=== PATIENT | male | born 1965 | race African-American/Black ===

== ENCOUNTER → 2020-02-19 | Outpatient (CLI) | payer OTHER ==
[2014-02-17 20:28] VITALS: BP 156/94
[~2020-02-19] MED LIST: ZOLPIDEM 5 MG TABLET. PO ONE
--- NOTE | 2020-02-20 12:30 | SLEEP ---
DATE OF STUDY: 02/20/2020 SLEEP STUDY REFERRED BY: Mariana Veronica APRN The patient is 54 years old, who weighs 200 pounds with a BMI of 30. The patient's [place] score was 10. The patient underwent split night study performed at [facility]. During the night study, the patient spent 436 minutes in bed and slept for 262 minutes with a sleep efficiency of 60%. Sleep latency was 98 minutes with a REM latency of 282 minutes. Sleep architecture showed increased stage 1 and stage 2 sleep, absent slow wave sleep and reduced REM sleep, which was 13% of total sleep time. During the initial diagnostic portion of the study, the patient slept for 87 minutes. During that time, the patient had 60 obstructive apneas, 63 mixed apneas, no central apneas and 15 hypopneas. The patient's AHI was 95 per hour. There was no supine or REM sleep seen during the diagnostic portion. EKG monitoring revealed mean heart rate of 95 beats per minute. No sustained arrhythmias observed. Nocturnal oximetry study revealed a mean oxygen saturation of 94% with lowest of 81%. A 33% of the time, oxygen saturation remained between 80% and 89%. No significant PLMs seen. The patient met the criteria for CPAP initiation. It was started at 5-cm water and titrated up to 17-cm water. At the final pressure, the patient slept for 47 minutes. The patient had lateral REM sleep. The patient's AHI was reduced to 1 per hour and oxygen saturation remained above 92%. The patient used medium-sized full facemask. IMPRESSION: 1. Severe obstructive sleep apnea at an apnea-hypopnea index of 95 per hour. 2. Nocturnal hypoxia secondary to obstructive sleep apnea, but resolved with CPAP. 3. No clinically significant periodic limb movements. RECOMMENDATIONS: 1. CPAP at 17-cm water, completely eliminated the patient's sleep apnea, should be used on a nightly basis. 2. Follow up in 4-6 weeks to assess compliance with CPAP and to document clinical improvement. 3. Weight loss is advised. 4. Avoid [employer] depressants. 5. Cautioned regarding driving until symptoms of sleep apnea resolve with the use of CPAP. DEANDRA NAGEL MD DR: LUIS/avelino JOB#: [id number] / [id number] MARIANA Shipman APRN
== END | disposition home or self-care (01) ==
LOC: SLPLAB 19:23
PROVIDERS: ATTEND Nurse Practitioner Family
DX: G47.33 Obstructive sleep apnea (adult) (pediatric) (principal); G47.34 Idiopathic sleep related nonobstructive alveolar hypoventilation
CPT/HCPCS: 95810

== ENCOUNTER → 2021-06-24 | Outpatient (CLI) | payer OTHER ==
[2014-02-17 20:28] VITALS: BP 156/94
--- NOTE | 2021-06-24 17:06 | RAD ---
US HEAD/NECK SOFT TISSUE History:Reason: NODULE OF NECK / Spl. Instructions: / History: Comparison: None Technique: Sonographic examination of the mid posterior neck Findings: Ill-defined lobulated isoechoic mass within the posterior neck subcutaneous fat measures 2.1 x 1.1 x 1.8 cm. Impression: 1. Lobulated isoechoic mass within the posterior neck subcutaneous tissues, most likely lipoma. Electronically signed by: Jose Osborn DO (06/24/2021 5:04 PM) [id number]
--- NOTE | 2021-06-24 17:22 | RAD ---
XR ELBOW COMPLETE_RIGHT 3+ VIEWS History: Reason: RIGHT ELBOW PAIN. / Spl. Instructions: / History: Technique: 3 views right elbow Comparison: None. Findings: No dislocation. No acute fracture. No significant elbow joint effusion. Olecranon enthesophytes. Post erior forearm soft tissue swelling. Impression: 1. No acute osseous abnormality. 2. Posterior forearm soft tissue swelling. Electronically signed by: Jose Osborn DO (06/24/2021 5:20 PM) [id number]
== END ==
LOC: US 12:03
PROVIDERS: ATTEND Nurse Practitioner Family
DX: M79.89 Other specified soft tissue disorders (principal); R22.1 Localized swelling, mass and lump, neck; M25.521 Pain in right elbow
CPT/HCPCS: 73080; 76536